=== PATIENT | male | born 1990 | race Caucasian/White ===

== ENCOUNTER 2020-02-08 18:50 | Emergency (ER) | payer OTHER ==
[~2020-02-08] VITALS: Ht 175.3 cm; Wt 85.0 kg
[2020-02-08] MEDS ORDERED: NEOMY/BACITR/POLYMYXIN OINT PACKET. TP ONE ×2 (19:15→23:30)
[2020-02-08] MEDS ORDERED: LIDOCAINE 2% 20 ML VIAL. IJ ONE (19:15)
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
[2020-02-08 19:33] LABS: BASO # 0.1 x10^3/uL (0.0-0.2); BASO % 1 % (0-3); EOS # 0.2 x10^3/uL (0.0-0.7); EOS % 3 % (0-3); HEMATOCRIT 39.7 % (39.0-53.0); HEMOGLOBIN 13.9 g/dL (13.0-17.5); LYMPH # 2.8 x10^3/uL (1.0-4.8); LYMPH % 36 % (24-48); MEAN CORPUSCULAR HEMOGLOBIN 31 pg (25-35); MEAN CORPUSCULAR HGB CONC 35 g/dL (31-37); MEAN CORPUSCULAR VOLUME 89 fL (79-100); MONO # 0.8 x10^3/uL (0.0-1.1); MONO % 10 % (0-9); NEUT # 3.8 x10^3/uL (1.8-7.7); NEUT % 50 % (31-73); PLATELET COUNT 338 x10^3/uL (140-400); RED BLOOD COUNT 4.48 x10^6/uL (4.30-5.70); RED CELL DISTRIBUTION WIDTH 13.5 % (11.5-14.5); WHITE BLOOD COUNT 7.8 x10^3/uL (4.0-11.0)
[2020-02-08 20:11] LABS: CALCIUM 8.9 mg/dL (8.5-10.1); GFR 87.2; POTASSIUM 3.4 mmol/L (3.5-5.1)
[2020-02-08] MEDS ORDERED: IOHEXOL 350 MG/ML 100 ML VIAL. IV ONE (20:30)
[2020-02-08] MEDS ORDERED: CONTRAST GIVEN. MC PRN (20:45)
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
[2020-02-08 23:25] VITALS: BP 100/68
== END 2020-02-08 23:26 | disposition home or self-care (01) ==
LOC: EEVIPCON 18:50 → ER 18:50
DX: S51.812A Laceration without foreign body of left forearm, initial encounter (principal); R45.1 Restlessness and agitation; X78.8XXA Intentional self-harm by other sharp object, initial encounter; Y93.89 Activity, other specified; Y92.89 Other specified places as the place of occurrence of the external cause; Y99.8 Other external cause status
CPT/HCPCS: 12001; 36415; 73206; 80048; 85025; 99285